=== PATIENT | male | born 1985 | race American Indian/Alaskan Native ===

== ENCOUNTER 2020-09-03 18:50 | Emergency (ER) | payer SELFPAY ==
[2020-09-03 22:11] VITALS: BP 122/67
--- NOTE | 2020-09-03 22:59 | Emergency Department Report ---
ED Extremity Problem HPI - General Chief complaint: Extremity Injury, Lower Stated complaint: RT FOOT Source: patient Mode of arrival: Ambulatory Limitations: No Limitations - History of Present Illness Initial comments: Patient is a 34-year-old -[place] male with no past medical history presents to the ED with complaint of acute onset persistent left plantar foot pain with ulcerated wound for the last 1 week, worse in the last 2 days. Patient states that the pain is worse with ambulation or palpation. Patient denies fever, chills, nausea, vomiting, traumatic injury, cough, numbness and tingling or weakness of bilateral feet or lower extremities. MD Complaint: extremity pain (left plantar foot pain with ulcerated wound) -: Sudden, week(s) (1) Location: left, other (foot) History of Same: No -: Yes myalgia, Yes arthralgia Severity scale (0 -10): 5 Quality: aching, sharp Consistency: constant Improves with: nothing Worsens with: weight bearing, walking, palpation Associated Symptoms: arthralgias - Related Data Home Medications Medication Instructions Recorded Confirmed Last Taken Albuterol Sulfate [Albuterol 0.63%] 0.63 mg IH TID PRN 11/13/13 11/13/13 10/30/13 1 Previous Rx's Medication Instructions Recorded Last Taken Type Albuterol Sulfate [Ventolin HFA] 2 puff IH Q4H PRN #2 hfa.aer.ad 11/14/13 Unknown Rx Loratadine (Nf) [Claritin] 10 mg PO DAILY #30 tablet 11/14/13 Unknown Rx predniSONE [Deltasone] 50 mg PO QDAY #5 tab 11/14/13 Unknown Rx Ibuprofen [Motrin] 800 mg PO Q8HR PRN #30 tablet 09/03/20 Unknown Rx Sulfamethoxazole/Trimethoprim 1 each PO Q12H #20 tablet 09/03/20 Unknown Rx [Bactrim DS TAB] Terbinafine (Nf) [LamiSIL] 250 mg PO QDAY #14 tablet 09/03/20 Unknown Rx Allergies Allergy/AdvReac Type Severity Reaction Status Date / Time No Known Allergies Allergy Verified 11/14/13 00:45 ED Review of Systems ROS: Stated complaint: RT FOOT Other details as noted in HPI Constitutional: denies: chills, fever Eyes: denies: eye pain, eye discharge, vision change ENT: denies: ear pain, throat pain Respiratory: denies: cough, shortness of breath, wheezing Cardiovascular: denies: chest pain, palpitations Endocrine: no symptoms reported Gastrointestinal: denies: abdominal pain, nausea, diarrhea Genitourinary: denies: urgency, dysuria Musculoskeletal: arthralgia (left plantar foot pain due to open wound on left plantar foot and small toe), myalgia. denies: back pain, joint swelling Skin: other (open ulcerated wound on left plantar foot and left small toe). denies: rash, lesions Neurological: denies: headache, weakness, paresthesias Psychiatric: denies: anxiety, depression Hematological/Lymphatic: denies: easy bleeding, easy bruising ED Past Medical Hx - Past Medical History Hx Asthma: Yes - Social History Smoking Status: Current Every Day Smoker Substance Use Type: None - Medications Home Medications: Home Medications Medication Instructions Recorded Confirmed Last Taken Type Albuterol Sulfate [Albuterol 0.63%] 0.63 mg IH TID PRN 11/13/13 11/13/13 10/30/13 History 1 Albuterol Sulfate [Ventolin HFA] 2 puff IH Q4H PRN #2 hfa.aer.ad 11/14/13 Unknown Rx Loratadine (Nf) [Claritin] 10 mg PO DAILY #30 tablet 11/14/13 Unknown Rx predniSONE [Deltasone] 50 mg PO QDAY #5 tab 11/14/13 Unknown Rx Ibuprofen [Motrin] 800 mg PO Q8HR PRN #30 tablet 09/03/20 Unknown Rx Sulfamethoxazole/Trimethoprim 1 each PO Q12H #20 tablet 09/03/20 Unknown Rx [Bactrim DS TAB] Terbinafine (Nf) [LamiSIL] 250 mg PO QDAY #14 tablet 09/03/20 Unknown Rx ED Physical Exam - General Limitations: No Limitations General appearance: alert, in no apparent distress - Head Head exam: Present: atraumatic, normocephalic - Eye Eye exam: Present: normal appearance, PERRL, EOMI Pupils: Present: normal accommodation - ENT ENT exam: Present: normal exam, normal orophraynx, mucous membranes moist, TM's normal bilaterally, normal external ear exam - Neck Neck exam: Present: normal inspection, full ROM - Respiratory Respiratory exam: Present: normal lung sounds bilaterally. Absent: respiratory distress, wheezes, rales, rhonchi, chest wall tenderness, accessory muscle use, decreased breath sounds, prolonged expiratory - Cardiovascular Cardiovascular Exam: Present: regular rate, normal rhythm, normal heart sounds. Absent: systolic murmur, diastolic murmur, rubs, gallop - GI/Abdominal GI/Abdominal exam: Present: soft, normal bowel sounds. Absent: tenderness, guarding, hyperactive bowel sounds, hypoactive bowel sounds - Extremities Exam Extremities exam: Present: normal inspection, full ROM, tenderness (Palpable mild right plantar foot tenderness due to an ulcerated wound on left small toe), normal capillary refill. Absent: pedal edema - Back Exam Back exam: Present: normal inspection, full ROM. Absent: tenderness, CVA tenderness (R), CVA tenderness (L), muscle spasm, paraspinal tenderness, vertebral tenderness - Neurological Exam Neurological exam: Present: alert, oriented X3, CN II-XII intact, normal gait, reflexes normal - Psychiatric Psychiatric exam: Present: normal affect, normal mood - Skin Skin exam: Present: warm, dry, intact, normal color, other (Ulcerated tender open wound on left plantar foot on left small toe). Absent: rash ED Course Vital Signs 09/03/20 22:10 Temperature 98.3 F Pulse Rate 65 Respiratory 20 Rate Blood Pressure 122/67 O2 Sat by Pulse 98 Oximetry ED Medical Decision Making - Medical Decision Making This is a 34-year-old -[place] male with no past medical history presents to the ED with complaint of acute onset persistent left plantar foot pain with ulcerated wound for the last 1 week, worse in the last 2 days. Patient states that the pain is worse with ambulation or palpation. In the ED, patient is alert and oriented x3 and is not in any distress. Based on the history and physical exam findings, the patient was discharged home on medications and advised to follow-up with his primary care physician in 5 to 7 days for reevaluation. Patient advised return to the ED immediately if symptoms get worse. - Differential Diagnosis Foot ulcer; tinea pedis; cellulitis; Critical care attestation.: If time is entered above; I have spent that time in minutes in the direct care of this critically ill patient, excluding procedure time. ED Disposition Clinical Impression: Athlete's foot on left Skin ulcer of plantar aspect of left foot Qualifiers: Non-pressure ulcer stage: limited to breakdown of skin Qualified Code(s): L97.521 - Non-pressure chronic ulcer of other part of left foot limited to breakdown of skin Disposition: DC-01 TO HOME OR SELFCARE Is pt being admited?: No Does the pt Need Aspirin: No Condition: Stable Instructions: Athlete's Foot, [id number] Additional Instructions: Take medications with food, drink plenty of fluids and follow up with your primary care physician in 7-10 days for reevaluation. Return to the ED immediately if symptoms get worse Prescriptions: Sulfamethoxazole/Trimethoprim [Bactrim DS TAB] 1 each PO Q12H #20 tablet Terbinafine (Nf) [LamiSIL] 250 mg PO QDAY #14 tablet Ibuprofen [Motrin] 800 mg PO Q8HR PRN #30 tablet PRN Reason: Pain , Severe (7-10) Referrals: [facility] [Provider Group] - 7-10 days Forms: Work/School Release Form(ED) Time of Disposition: 22:58 Print Language: POLISH
== END 2020-09-03 23:03 | disposition home or self-care (01) ==
LOC: ED 18:50
DX: B35.3 Tinea pedis (principal); L97.529 Non-pressure chronic ulcer of other part of left foot with unspecified severity; F17.200 Nicotine dependence, unspecified, uncomplicated; Z79.899 Other long term (current) drug therapy
CPT/HCPCS: 99281

== ENCOUNTER 2021-01-30 22:08 | Emergency (ER) | payer SELFPAY ==
--- NOTE | 2021-01-30 22:38 | Emergency Department Report ---
ED General Adult HPI - General Chief complaint: Chest Pain Stated complaint: CHEST/BACK PAIN Time Seen by Provider: 01/30/21 22:27 Source: patient Mode of arrival: Ambulatory Limitations: No Limitations - History of Present Illness Initial comments: 35-year-old male patient with history of asthma presents to the emergency department with complaints of chest pain and back pain starting today. Patient describes the pain as "sharp," worse with movement, improved with rest. Patient states he lifts heavy objects on a daily basis at work. No medications prior to arrival. No history of hypertension, diabetes, hyperlipidemia. No venous thromboembolism risk factors identified on history. Denies fever, chills, cough, shortness of breath, wheezing, syncope, nausea, vomiting, lower extremity pain/swelling. Denies all other complaints at this time. - Related Data Home Medications Medication Instructions Recorded Confirmed Last Taken Albuterol Sulfate [Albuterol 0.63%] 0.63 mg IH TID PRN 11/13/13 11/13/13 10/30/13 1 Previous Rx's Medication Instructions Recorded Last Taken Type Albuterol Sulfate [Ventolin HFA] 2 puff IH Q4H PRN #2 hfa.aer.ad 11/14/13 Unknown Rx Loratadine (Nf) [Claritin] 10 mg PO DAILY #30 tablet 11/14/13 Unknown Rx predniSONE [Deltasone] 50 mg PO QDAY #5 tab 11/14/13 Unknown Rx Ibuprofen [Motrin] 800 mg PO Q8HR PRN #30 tablet 09/03/20 Unknown Rx Sulfamethoxazole/Trimethoprim 1 each PO Q12H #20 tablet 09/03/20 Unknown Rx [Bactrim DS TAB] Terbinafine (Nf) [LamiSIL] 250 mg PO QDAY #14 tablet 09/03/20 Unknown Rx Lidocaine [Lidoderm] 1 each TP BID #20 adh..patch 01/30/21 Unknown Rx Naproxen 500 mg PO BID #20 tablet 01/30/21 Unknown Rx Allergies Allergy/AdvReac Type Severity Reaction Status Date / Time No Known Allergies Allergy Verified 11/14/13 00:45 ED Review of Systems ROS: Stated complaint: CHEST/BACK PAIN Other details as noted in HPI Other: GENERAL: Negative for fever, chills, weight change, anorexia, fatigue. ENT: Negative for ear pain, difficulty hearing, sore throat, nasal congestion, epistaxis. CARDIOVASCULAR: Positive for chest pain. PULMONARY: Negative for cough, dyspnea, wheezing, orthopnea, cyanosis. GASTROINTESTINAL: Negative for abdominal pain, nausea, vomiting, diarrhea, constipation. MUSCULOSKELETAL: Positive for back pain. NEUROLOGICAL: Negative for headache, seizure, syncope, paresthesias, weakness. INTEGUMENTARY: Negative for erythema, rash, diaphoresis, laceration, ecchymosis. HEMATOLOGICAL: Negative for hemoptysis, hematemesis, hematochezia, hematuria. PSYCHIATRIC: Negative for hallucinations, suicidal ideation, homicidal ideation, anxiety, depression. ED Past Medical Hx - Past Medical History Previous Medical History?: Yes Hx Asthma: Yes - Surgical History Past Surgical History?: No - Social History Smoking Status: Current Every Day Smoker Substance Use Type: None - Medications Home Medications: Home Medications Medication Instructions Recorded Confirmed Last Taken Type Albuterol Sulfate [Albuterol 0.63%] 0.63 mg IH TID PRN 11/13/13 11/13/13 10/30/13 History 1 Albuterol Sulfate [Ventolin HFA] 2 puff IH Q4H PRN #2 hfa.aer.ad 11/14/13 Unknown Rx Loratadine (Nf) [Claritin] 10 mg PO DAILY #30 tablet 11/14/13 Unknown Rx predniSONE [Deltasone] 50 mg PO QDAY #5 tab 11/14/13 Unknown Rx Ibuprofen [Motrin] 800 mg PO Q8HR PRN #30 tablet 09/03/20 Unknown Rx Sulfamethoxazole/Trimethoprim 1 each PO Q12H #20 tablet 09/03/20 Unknown Rx [Bactrim DS TAB] Terbinafine (Nf) [LamiSIL] 250 mg PO QDAY #14 tablet 09/03/20 Unknown Rx Lidocaine [Lidoderm] 1 each TP BID #20 adh..patch 01/30/21 Unknown Rx Naproxen 500 mg PO BID #20 tablet 01/30/21 Unknown Rx ED Physical Exam - General Limitations: No Limitations - Other Other exam information: General: Awake and alert. No acute distress. Head: Atraumatic, normocephalic. Eyes: EOMI. Pupils are equal and round. Normal sclera and conjunctiva. ENT: Oral mucosa is moist. Normal pharyngeal exam. Neck: Supple. No lymphadenopathy. Pulmonary: No respiratory distress. Clear to auscultation bilaterally. Cardiac: Regular rate and rhythm. Pulses are palpable and equal bilaterally. No lower extremity cyanosis or edema. Skin: Warm and dry. No rashes. Abdomen: Soft, non-tender, non-protuberant. No guarding, rigidity, or rebound. Bowel sounds are normal. No organomegaly or masses noted. Back: Normal alignment. No CVA tenderness. Extremities: Symmetrical. Full range of motion intact. Neurological: Alert and oriented, appropriately interactive, no focal deficits. Psych: Cooperative. Appropriate mood and affect. Speech is evenly metered. Thoughts are logically construed. ED Course Vital Signs 01/30/21 22:22 Temperature 97.9 F Pulse Rate 83 Respiratory 18 Rate Blood Pressure 119/72 O2 Sat by Pulse 100 Oximetry ED Medical Decision Making - EKG Data 01/30/21 22:36 EKG shows normal sinus rhythm with a ventricular rate of 63 bpm. Normal axis. Normal PA interval. Normal QT interval. Good R wave progression. No ST segment changes. Over read by attending emergency physician, who agrees with this interpretation. - Medical Decision Making Differential diagnosis including but not limited to: acute coronary syndrome, cardiac arrhythmia, pericarditis, pericardial effusion/cardiac tamponade, pleural effusion, pneumonia, strain/sprain Patient presents to the emergency department with signs and/or symptoms that arise low risk clinical suspicion for pulmonary embolism. The patient has none of the following clinical criteria: age >50, heart rate >100, room air O2 saturation <94%, history of DVT/PE, recent trauma/surgery, hemoptysis, exogenous hormone use, or signs/symptoms of DVT. As a result, this patient has very low probability of pulmonary embolism and further testing is not indicated. On reevaluation, patient remains stable. EKG without acute injury pattern. Chest x-ray is negative. Exceedingly low pretest probability for acute coronary syndrome given patient's age, absence of risk factors, and easily reproducible sharp chest pain. No clinical indication for further diagnostic work-up on an emergent basis at this time. Suspect patient's chest pain is of musculoskeletal etiology. Patient will be discharged home with appropriate symptomatic treatment and referred to primary care provider for close outpatient follow-up. Patient expressed understanding and is agreeable to plan of care. Activity modifications discussed. Strict return precautions provided. Repeat exam is unremarkable and benign. History, exam, diagnostic testing, and current condition do not suggest worrisome pathology to warrant further testing, continued ED treatment, admission, or surgical evaluation at this point. Given the low probability of a significant medical illness, it would be more likely to result in harm than benefit to perform further testing at this stage. Discussed findings, presumptive diagnosis, need for follow-up and specific signs/symptoms that should prompt immediate return to the emergency department. Instructions were explained in detail to the patient in addition to giving written discharge information. Patient expressed understanding and was given the opportunity to ask questions, all of which were satisfactorily answered prior to discharge home. Critical care attestation.: If time is entered above; I have spent that time in minutes in the direct care of this critically ill patient, excluding procedure time. ED Disposition Clinical Impression: Chest pain Qualifiers: Chest pain type: unspecified Qualified Code(s): R07.9 - Chest pain, unspecified Disposition: HOME / SELF CARE / HOMELESS Is pt being admited?: No Does the pt Need Aspirin: No Condition: Stable Instructions: Costochondritis Additional Instructions: EKG and chest x-ray are within normal limits. Take Tylenol every 4 hours as needed for pain. Take Naprosyn twice daily with food as needed for pain. Apply Lidoderm patches to affected area as needed for pain. Apply heat to affected area as needed for pain. Gradually advance physical activity slowly as tolerated. Follow-up with primary care provider this week. Call Monday to schedule an appointment. See referral information below. Return to the emergency department immediately for new or worsening symptoms. Specifically, return to the emergency department immediately for worsening pain, difficulty breathing, palpitations, loss of consciousness, wheezing, pain/swelling in your legs, or any other concerns. Prescriptions: Lidocaine [Lidoderm] 1 each TP BID #20 adh..patch Naproxen 500 mg PO BID #20 tablet Referrals: IGGY CARRILLO MD [Staff Physician] - 3-5 Days [facility] [Provider Group] - 3-5 Days Forms: Work/School Release Form(ED) Time of Disposition: 23:59
--- NOTE | 2021-01-30 23:12 | XRay Report ---
CHEST 2 VIEWS INDICATION / CLINICAL INFORMATION: chest pain. COMPARISON: None available. FINDINGS: SUPPORT DEVICES: None. HEART / MEDIASTINUM: No significant abnormality. LUNGS / PLEURA: No significant pulmonary or pleural abnormality. No pneumothorax. ADDITIONAL FINDINGS: No significant additional findings. IMPRESSION: 1. No acute findings. Signer Name: Edin Jeronimo DO Signed: 01/30/2021 11:08 PM Workstation Name: [id number]
[2021-01-31 00:31] VITALS: BP 129/66
--- NOTE | 2021-02-04 10:05 | Electrocardiograph Report ---
[facility] Test Date: 2021-01-30 Test Time: 22:30:10 Pat Name: CARLITOS LOPEZ Department: Room: Gender: M [employer] Coordinator: IFRAH : 1985 Requested By: BOBBI YEAGER Order Number: [id number] Reading MD: Chelsea Christina Measurements Intervals [place] Rate: 63 P: 67 VA: 124 QRS: 75 QRSD: 86 T: 50 QT: 396 QTc: 405 Interpretive Statements Sinus rhythm Normal ECG No previous ECG available for comparison Electronically Signed On 02-04-2021 10:05:07 EDT by Chelsea Christina
== END 2021-01-31 00:30 | disposition home or self-care (01) ==
LOC: ED 22:08
DX: R07.89 Other chest pain (principal); J45.909 Unspecified asthma, uncomplicated; F17.200 Nicotine dependence, unspecified, uncomplicated; Z79.899 Other long term (current) drug therapy
CPT/HCPCS: 71046; 93005; 99283